=== PATIENT | male | born 1955 | race Two or more races ===

== ENCOUNTER 2016-11-13 21:06 | Emergency (ER) | payer OTHER ==
[~2016-11-13] VITALS: Ht 172.7 cm; Wt 117.9 kg
[2016-11-14 00:15] VITALS: BP 132/55
== END 2016-11-14 01:00 | disposition home or self-care (01) ==
LOC: ER 21:32
DX: S46.912A Strain of unspecified muscle, fascia and tendon at shoulder and upper arm level, left arm, initial encounter (principal); X58.XXXA Exposure to other specified factors, initial encounter; Y93.89 Activity, other specified; Y99.8 Other external cause status; Y92.89 Other specified places as the place of occurrence of the external cause
CPT/HCPCS: 73030